=== PATIENT | male | born 1980 | race Caucasian/White ===

== ENCOUNTER 2017-09-29 12:20 | Emergency (ER) | payer OTHER ==
[~2017-09-29] VITALS: Ht 177.8 cm; Wt 112.9 kg
[2017-09-29 12:50] VITALS: Ht 177.8 cm; Wt 112.9 kg
[2017-09-29 14:01] VITALS: BP 136/70
== END 2017-09-29 14:01 | disposition home or self-care (01) ==
LOC: ED 12:20
DX: M25.511 Pain in right shoulder (principal)